=== PATIENT | female | born 1965 | race Asian ===

== ENCOUNTER 2022-01-16 22:53 | Emergency (ER) | payer OTHER ==
[~2022-01-16] VITALS: Ht 162.6 cm; Wt 63.5 kg
[2022-01-16 23:07] VITALS: BP 148/90
--- NOTE | 2022-01-16 23:07 | NUR ---
BIBDAUGHTER THIS 56YO FEMALE PATIENT WITH CC OF ITCHINESS AND SWELLING AT THE POSTERIOR UPPER BACK. PATIENT IS ALERT, ORIENTED X4. ABLE TO MAKE NEEDS KNOWN. PLACED ON ROOM 9 WAITING TO BE SEEN BY ER MD.
== END 2022-01-16 23:23 | disposition home or self-care (01) ==
LOC: ER 22:56
DX: S10.96XA Insect bite of unspecified part of neck, initial encounter (principal); S40.862A Insect bite (nonvenomous) of left upper arm, initial encounter; I10 Essential (primary) hypertension; W57.XXXA Bitten or stung by nonvenomous insect and other nonvenomous arthropods, initial encounter; Y93.89 Activity, other specified; Y92.89 Other specified places as the place of occurrence of the external cause; Y99.8 Other external cause status